=== PATIENT | female | born 1965 | race African-American/Black ===

== ENCOUNTER 2019-08-10 13:19 | Outpatient (CLI) | payer BC ==
--- NOTE | 2019-08-10 13:57 | XRay Report ---
CHEST 2 VIEWS INDICATION / CLINICAL INFORMATION: PROLONGED COUGH. COMPARISON: None available. FINDINGS: SUPPORT DEVICES: None. HEART / MEDIASTINUM: The heart size and pulmonary vasculature are normal. LUNGS / PLEURA: No significant pulmonary or pleural abnormality. No pneumothorax. ADDITIONAL FINDINGS: No significant additional findings. IMPRESSION: No acute findings. Signer Name: Polo Will MD Signed: 08/10/2019 1:53 PM Workstation Name: [id number]
== END 2019-08-10 13:20 | disposition home or self-care (01) ==
LOC: XRAY 13:19
PROVIDERS: ATTEND Family Medicine
DX: R05 Cough (principal)
CPT/HCPCS: 71046